=== PATIENT | male | born 1965 | race Caucasian/White ===

== ENCOUNTER 2016-12-05 18:40 | Emergency (ER) | payer BC, OTHER ==
[~2016-12-05] VITALS: Ht 182.9 cm; Wt 97.6 kg
[2016-12-05 18:44] VITALS: BP 153/91
[2016-12-05] MEDS ORDERED: ASPIRIN 325 MG TAB PO STA (18:55)
[2016-12-05] MEDS ORDERED: ASPIRIN 325 MG TAB ONE (19:01)
[2016-12-05 19:29] LABS: BASOPHILS # (AUTO) 0.3 K/uL (0.00-0.22); BASOPHILS % (AUTO) 2.8 % (0.0-2.0); EOSINOPHILS # (AUTO) 0.5 K/uL (0-0.4); EOSINOPHILS % (AUTO) 5.3 % (0.0-4.0); HEMATOCRIT 44.9 % (36-52); HEMOGLOBIN 14.8 g/dL (12.0-18.0); LYMPHOCYTES # (AUTO) 2.1 K/uL (2.0-11.5); MEAN CORPUSCULAR HEMOGLOBIN 30 pg (27-31); MEAN CORPUSCULAR HGB CONC 33 g/dL (33-37); MEAN CORPUSCULAR VOLUME 90 fL (80-94); MONOCYTES # (AUTO) 0.8 K/uL (0.8-1.0); MONOCYTES % (AUTO) 8.4 % (1.7-9.3); NEUTROPHILS # (AUTO) 5.9 K/uL (1.8-7.7); NEUTROPHILS % (AUTO) 61.5 % (42.2-75.2); PLATELET COUNT (AUTO) 230 K/uL (140-450); RED CELL DISTRIBUTION WIDTH 12.7 % (11.6-13.7); WHITE BLOOD COUNT (AUTO) 9.6 K/uL (4.8-10.8)
[2016-12-05 19:45] LABS: PROTHROMBIN TIME 10.2 secs (10.8-13.4)
[2016-12-05 19:47] LABS: ALBUMIN 3.9 g/dL (3.4-5.0); ANION GAP 10.8 (8-16); CALCIUM 8.3 mg/dL (8.5-10.1); CARBON DIOXIDE 29.8 mmol/L (21-32); CREATININE 1.2 mg/dL (0.7-1.3); POTASSIUM 3.6 mmol/L (3.5-5.1); TOTAL BILIRUBIN 0.3 mg/dL (0.0-1.0); TOTAL PROTEIN, SERUM 7.7 g/dL (6.4-8.2)
--- NOTE | 2016-12-05 21:55 | NUR ---
PT TAKEN TO BED 3
--- NOTE | 2016-12-05 21:55 | NUR ---
PATIENT PRESENTS TO ED WITH c/o chest pain . PT DENIES N/V/D; SKIN IS PINK/WARM/DRY; AAOX4 WITH EVEN AND STEADY GAIT; LUNGS CLEAR BL; HR EVEN AND REGULAR; PT DENIES ANY FEVER, SOB, OR COUGH AT THIS TIME; PATIENT STATES PAIN OF 8/10 AT THIS TIME; VSS; PATIENT POSITIONED FOR COMFORT; HOB ELEVATED; BEDRAILS UP X2; BED DOWN. ER MD MADE AWARE OF PT STATUS.
[2016-12-05 23:22] LABS: APPEARANCE,URINE CLEAR (CLEAR); BILIRUBIN,URINE NEGATIVE (NEGATIVE); BLOOD, URINE TRACE-L (NEGATIVE); COLOR,URINE YELLOW (YELLOW); LEUKOCYTE ESTERASE ,URINE NEGATIVE (NEGATIVE); NITRITE, URINE NEGATIVE (NEGATIVE); PROTEIN,URINE NEGATIVE (NEGATIVE); UGLUCOSE NEGATIVE (NEGATIVE); UROBILINOGEN,URINE 0.2 EU/dL (0.2 - 1)
[2016-12-05 23:44] LABS: BACTERIA,URINE None Seen /HPF (None Seen); RBC,URINE NONE SEEN /HPF (0-5); SQUAMOUS EPITHELIAL CELL,UR None Seen /LPF (0-3 (FEW)); WBC,URINE 0-5 (RARE) /HPF (0-5)
--- NOTE | 2016-12-06 00:01 | NUR ---
Dr. Brito evaluating patient at bedside.
[2016-12-06] MEDS ORDERED: HYDROcodone/APAP 10/325 MG 1 TAB TAB PO STA (00:42)
[2016-12-06] MEDS ORDERED: DIAZEPAM 5 MG TAB PO ONE (00:45)
--- NOTE | 2016-12-06 01:30 | NUR ---
Patient discharged with v/s stable. Written and verbal after care instructions given and explained. Patient verbalized understanding. Ambulatory with steady gait. All questions addressed prior to discharge. Advised to follow up with PMD.
[2016-12-06 04:59] VITALS: BP 120/90
== END 2016-12-06 01:03 | disposition home or self-care (01) ==
LOC: MED 18:40
DX: S29.012A Strain of muscle and tendon of back wall of thorax, initial encounter (principal); X58.XXXA Exposure to other specified factors, initial encounter; Y93.89 Activity, other specified; Y92.89 Other specified places as the place of occurrence of the external cause; Y99.8 Other external cause status
CPT/HCPCS: 36415; 71010; 80053; 81001; 84484; 85025; 85610; 99285

== ENCOUNTER 2018-08-04 18:23 | Emergency (ER) | payer BC ==
[~2018-08-04] VITALS: Ht 180.3 cm; Wt 95.3 kg
[2018-08-04 18:45] VITALS: BP 149/103
--- NOTE | 2018-08-04 20:10 | NUR ---
PT BIB C/O FEVER AND CHILLS X10 DAYS. PT STATES HE SEEN HIS PRIMARY PHYSICIAN 1 WEEK AGO FOR FEVER AND CHILLS WAS PROVIDED W/ PENICILLIN, PT STATES HE HAS NOT GOT BETTER SO HE SEEN HE PRIMARY PHYSICIAN TODAY AND WAS TOLD TO COME TO THE ER BECAUSE HE MIGHT HAVE PNA AND WAS PROVIDED W/ LEVAQUIN. --LUNG SOUNDS DEMINISHED IN UPPER LOBES. PT 98% ROOM AIR AT THIS TIME. SKIN WARM, DRY AND INTACT. AAOX4; ACTING APPROPRIATLY. DENIES N/V/D, COUGH, SOB, CP OR LOC PMH: DENIES RX:LEVAQUIN
--- NOTE | 2018-08-04 20:24 | NUR ---
PA WITH PT
[2018-08-04 21:00] VITALS: BP 134/89
--- NOTE | 2018-08-04 21:00 | NUR ---
Patient discharged with v/s stable. Written and verbal after care instructions given and explained. Patient alert, oriented and verbalized understanding of instructions. Ambulatory with steady gait. All questions addressed prior to discharge. ID band removed. Patient advised to follow up with PMD. Rx of ALBUTEROL, PREDNISONE, AND SUDAFED given. Patient educated on indication of medication including possible reaction and side effects. Opportunity to ask questions provided and answered.
== END 2018-08-04 21:00 | disposition home or self-care (01) ==
LOC: MED 18:23
DX: J06.9 Acute upper respiratory infection, unspecified (principal); M62.838 Other muscle spasm; Z79.899 Other long term (current) drug therapy
CPT/HCPCS: 71046; 99283